=== PATIENT | female | born 1995 | race Hispanic/Latino ===

== ENCOUNTER → 2020-01-30 11:05 | Outpatient (ROUT) | payer OTHER, SELFPAY | PROVIDERS: Visit Provider Nurse Practitioner Obstetrics & Gynecology | DX: Z34.90 Encounter for supervision of normal pregnancy, unspecified, unspecified trimester (principal) | CPT/HCPCS: 86900; 86901 ==

== ENCOUNTER → 2020-03-02 15:42 | Outpatient (CLI) | payer OTHER, SELFPAY ==
--- NOTE | 2020-03-02 | DI.US.S_ITS ---
PROCEDURE: US OB >= 14 WEEKS FETUS INDICATIONS: ANATOMY OUTSIDE/PRIOR DATING DATA: Last menstrual period (LMP): October 07, 2019. LMP-based estimated date of delivery (ALEJANDRA): July 13, 2020 . First dating scan (date and location): March 02, 2020 . Estimated date of delivery (ALEJANDRA) from first dating scan: July 06, 2020 . TECHNIQUE: Real-time scanning was performed of the fetus, with image documentation and biometric measurements. Endovaginal scanning: Not performed COMPARISON: None. FINDINGS: General: A single living intrauterine gestation is present. Presentation: Vertex. Placenta: Placental position is posterior , without previa. Amniotic fluid index: 12.6 cm, normal range is 5-24 cm. heart rate: 152 beats per minute. Maternal cervical canal: 4.1 cm long. Normal lower limit is 2.5 cm. biometrics: Biparietal diameter: 5.2 cm, correlating with 21 weeks and 5 days Head circumference: 19.6 cm, correlating with 21 weeks and 6 days Abdominal circumference: 16.5 cm, correlating with 21 weeks and 4 days Femur length: 4.0 cm, correlating with 23 weeks and 0 days Estimated gestational age from initial scan: not applicable. Composite gestational age from present scan: 22 weeks and 0 days Estimated weight and percentile: 478 g which correlates with the 94th percentile based off gestational age. Measurement variability for biometric dating: +/- 7 days from 14 weeks to 15 weeks 6 days gestation, +/- 10 days from 16 weeks to 21 weeks 6 days gestation, +/- 2 weeks from 22 weeks to 27 weeks 6 days gestation, +/- 3 weeks for 28 weeks gestation or later. weight reference: 4500 g or EFW >90/95% is considered macrosomia or large for gestational age. EFW <10% is small for gestational age. EFW 5% or less is considered intra-uterine growth restriction. Anatomic survey: Neuro: Ventricles are non-dilated at less than 10 mm. Cisterna magna is normal at 3-11 mm. Cerebellum is normal in size and morphology. Nuchal skin fold: Normal at less than 6 mm between 14-21 weeks gestational age. Face: Nose and lips, facial profile are normal. Spine: No evidence for spina bifida. Heart: 4-chambered heart is present, with normal ventricular outflow tracts. Diaphragm: Diaphragm is intact. Stomach: Left-sided stomach is present. Kidneys: No hydronephrosis. Normal is less than 5 mm in 2nd trimester, less than 7 mm in 3rd trimester. Cord: 3-vessel cord has orthotopic insertion. Bladder: Normal in size. Extremities: All 4 extremities identified. IMPRESSION: Single living intrauterine gestation with an estimated sonographic gestational age of approximately 22 weeks and 0 days. Estimated weight of approximately 478 g which correlates with the 94th percentile. Normal routine second-trimester anatomic screening survey. Dictated by: Lon Barrera M.D. on 03/03/2020 at 8:32 Approved by: Lon Barrera M.D. on 03/03/2020 at 8:52
== END ==
PROVIDERS: Referring Provider Nurse Practitioner Obstetrics & Gynecology; Visit Provider Nurse Practitioner Obstetrics & Gynecology
DX: Z36.89 Encounter for other specified antenatal screening (principal); Z3A.22 22 weeks gestation of pregnancy
CPT/HCPCS: 76811

== ENCOUNTER → 2020-04-08 09:02 | Outpatient (CLI) | payer OTHER, SELFPAY ==
[2020-04-08 09:48] LABS: Hematocrit 37.6 % (36-46); Mean Corpuscular HGB Conc 34.5 % (30-36); Mean Corpuscular Volume 92.5 fL (80-100); Platelet Count 158 X10^3/uL (150-400); Red Blood Cell Count 4.07 X10^6/uL (4.0-5.2); Red Cell Distribution Width 12.7 % (11.6-14.8); White Blood Cell Count 8.3 X10^3/uL (4.5-11.0)
[2020-04-08 10:21] LABS: Glucose Fasting 80 mg/dL (70-100)
[2020-04-08 11:26] LABS: Glucose Tol Interpretation INTERPRETATION
[2020-04-08 11:31] LABS: Glucose 1 Hour 139 mg/dL (70-170)
[2020-04-08 12:20] LABS: Glucose 2 Hour 97 mg/dL (70-140)
== END ==
PROVIDERS: Referring Provider Nurse Practitioner Obstetrics & Gynecology; Visit Provider Nurse Practitioner Obstetrics & Gynecology
DX: Z34.90 Encounter for supervision of normal pregnancy, unspecified, unspecified trimester (principal); Z13.1 Encounter for screening for diabetes mellitus; Z3A.26 26 weeks gestation of pregnancy
CPT/HCPCS: 36415; 82951; 82952; 85027

== ENCOUNTER → 2020-06-18 12:56 | Outpatient (ROUT) | payer OTHER, SELFPAY | PROVIDERS: Visit Provider Nurse Practitioner Obstetrics & Gynecology | DX: Z34.90 Encounter for supervision of normal pregnancy, unspecified, unspecified trimester (principal); Z36.85 Encounter for antenatal screening for Streptococcus B; Z3A.36 36 weeks gestation of pregnancy | CPT/HCPCS: 87081 ==

== ENCOUNTER 2020-07-08 07:31 | Inpatient (IN) | payer OTHER, SELFPAY ==
--- NOTE | 2020-07-08 08:27 | P.HPOB_ITS ---
OB HPI Date/Time Date of admission: 07/08/20 Date Patient Seen: 07/08/20 Time Patient Seen: 07:45 History of Present Condition Chief complaint: OBS : 1 Para: 0 Estimated Date of Delivery: 07/13/20 Estimated Gestational Age (weeks): 39.2 Narrative: Missy Conroy is a 24 year old female @ 39wks 2 days by LMP and early US who presents for evaluation of labor. Lots of FM and irregular, but painful contractions. Has had some bloody mucus discharge, but no active bleeding or leaking fluid. No fever, cough or associated COVID sx. Uncomplicated PN care w/ CNM. Was SARS-CoV-2 positive 03/28/2020 with rapid resolution of mild symptoms and has not been re-tested since. Requesting epidural. FOB is present and supportive. History of Present care: good care, initiated at week # (8), number of visits (9) and pounds weight gain (39) Dating criteria: LMP confirmed by 1st trimester US Medical complications: none Preadmission Labs Blood type: O (+) positive -: Antibody screen: negative, GBS status: negative, HBsAG: negative and HIV: negative -: Chlamydia screen: not detected and Gonorrhea screen: not detected -: Rubella: immune HCT: 37.6 HCAB: negative Cell-free DNA: Negative/ female Narrative: 2 hr gtt: 80/139/97 Evaluation Evaluation Baseline heart rate: 165 Variability: Moderate (11-25) monitor accelerations: Present monitor decelerations: Absent Contraction Frequency (minutes): 5 Uterine Contraction Intensity: Strong/Firm Status: Category ll Cervical dilation (cm): 4 Cervical effacement (%): 80 station: -2 [facility] Social History (Updated 07/08/20 @ 10:54 by Zara Wang CNM) marital status: unmarried,living together household members: significant other lives independently: Yes caregiver/support person: No education level: college Smoking Status: Former smoker substance use type: does not use well-balanced diet: daily or most days Meds Home Medications and Allergies Allergies Allergy/AdvReac Type Severity Reaction Status Date / Time amoxicillin Allergy Mild Rash Verified 07/08/20 10:54 Review of Systems Review of Systems ROS: Yes All systems reviewed with the patient and are negative except as otherwise documented Exam Vital Signs (past 8 hours): BP 120/66, HR 90bpm, RR-18/min, T 36.0C Temporal Resp Effort & Inspection: normal respiratory effort Auscultation: clear to auscultation bilaterally Cardio Rate: regular rate Rhythm: regular rhythm Heart Sounds: S1 normal and S2 normal Presentation: vertex Objective Labs Result Diagrams: 07/08/20 09:20 Labs: SARS-CoV-2: POSITIVE upon admission Assessment and Plan Assessment and Plan Assessment and Plan narrative: A: Term nullipara Approaching active labor No indication for GBS prophylaxis SARS-CoV-2 precautions indicated tachycardia, otherwise reassuring FHR tracing P: Admit, routine orders w/ COVID precautions. Epidural TONI. Will consult OB if FHR tachycardia not resolved after epidural IVFB. Consulted Hospitalist and OB on-call who agree w/ plan of care for this patient. Reassess in 4 hours or sooner, PRN.
[2020-07-08] MEDS: LACTATED RINGERS 1,000 ML 100 ML IV ×2 (09:00→12:23)
[2020-07-08 09:07] LABS: COVID19 -Nasal RAPID POSITIVE (Negative)
[2020-07-08 09:28] LABS: Add Manual Diff / Slide Review NO; Basophils Absolute Auto 0 /uL (0-100); Basophils Percent Auto 0.4 % (0-2); Eosinophils Absolute Auto 0 /uL (0-450); Eosinophils Percent Auto 0.3 % (2-4); Hematocrit 39.8 % (36-46); Hemoglobin 13.4 g/dL (12.0-16.0); Lymphocytes Absolute Auto 1300 /uL (1100-4500); Lymphocytes Percent Auto 9.8 % (25-40); Mean Corpuscular HGB Conc 33.7 % (30-36); Mean Corpuscular Volume 91.8 fL (80-100); Monocytes Absolute Auto 700 /uL (0-900); Monocytes Percent Auto 5.3 % (3-14); Neutrophils Absolute Auto 11200 /uL (1500-7000); Neutrophils Percent Auto 84.2 % (50-75); Platelet Count 178 X10^3/uL (150-400); Red Blood Cell Count 4.33 X10^6/uL (4.0-5.2); Red Cell Distribution Width 13.5 % (11.6-14.8); White Blood Cell Count 13.3 X10^3/uL (4.5-11.0)
[2020-07-08] MEDS: OXYTOCIN PREMIX 30 UNIT/500 ML PLAST..BAG IV (11:40)
--- NOTE | 2020-07-08 11:46 | PM.OBPNLAB ---
Date/Time Date Patient Seen: 07/08/20 Time Patient Seen: 11:35 Pain Control Pain control: tolerating well and epidural Comments: Patient resting comfortably, planning to sleep since she couldn't last night. Pelvic Exam Dilation (cm): 4 Effacement (%): 90 station: -2 Amniotic membrane status: Intact Contractions Contractions on admission: irregular Monitor mode: External Pitocin rate (mU/min): 2 Contraction frequency (min): 5 Contraction duration (min): 2 Contraction pattern: Regular Contraction intensity: Strong/Firm Status status: Category l Heart Rate Baseline: 135 Monitor Accelerations: Present Monitor Decelerations: Absent Monitor Variability: Moderate Comments: tachycardia resolved at 0900 Assessment and Plan Assessment: active labor Plan: begin patient augmentation Comments: P: Counseled on recommendation for pitocin augmentation, given spaced contractions. Pt consented and pitocin was started. Counseled on COVID recommendations including isolating in same room as after the . Reassess in 4 hours.
--- NOTE | 2020-07-08 15:41 | PM.OBPNLAB ---
Date/Time Date Patient Seen: 07/08/20 Time Patient Seen: 15:30 Pain Control Pain control: tolerating well and epidural Comments: VS remain stable and she remains asymptomatic for viral illness Pelvic Exam Dilation (cm): 6 Effacement (%): 100 station: -1 Amniotic membrane status: Intact Contractions Contractions on admission: irregular Monitor mode: External Pitocin rate (mU/min): 4 Contraction frequency (min): 5 Contraction duration (min): 2 Contraction pattern: Regular Contraction intensity: Strong/Firm Status status: Category ll Heart Rate Baseline: 145 Monitor Accelerations: Present Monitor Decelerations: Variable Monitor Variability: Moderate Comments: Overall reassuring, rare small variables only Assessment and Plan Assessment: active labor Plan: continuous present management Comments: Continue pitocin titration to adequate contraction pattern. Encouraged frequet position changes. Reassess in 4 hours or sooner, PRN.
[2020-07-08 16:29] VITALS: BP 119/80
[2020-07-08] MEDS: ACETAMINOPHEN 325 MG TABLET 650 MG PO (16:34)
[2020-07-08] MEDS: FENT 2MCG/ML BUPIV 0.125% EPI 200 MCG/100 ML PLAST..BAG 12 MCG EPIDURAL (19:27)
--- NOTE | 2020-07-08 19:47 | PM.OBPNLAB ---
Date/Time Date Patient Seen: 07/08/20 Time Patient Seen: 18:50 Pain Control Pain control: tolerating well and epidural Comments: feeling rectal pressure Pelvic Exam Dilation (cm): 9 Effacement (%): 100 station: 0 Amniotic membrane status: Leaking Comments: SROM @ 1635 Contractions Contractions on admission: irregular Monitor mode: External Pitocin rate (mU/min): 4 Contraction frequency (min): 2 Contraction duration (min): 1 Contraction pattern: Regular Contraction intensity: Strong/Firm Status status: Category ll Heart Rate Baseline: 150 Monitor Accelerations: Present Monitor Decelerations: Variable Monitor Variability: Moderate Assessment and Plan Assessment: active labor Plan: continuous present management Comments: Anticipate NSVB.
--- NOTE | 2020-07-08 23:24 | PM.OBPRVD ---
Labor & Delivery Delivery date: 07/08/20 Intrapartal Events: None Cervical ripening method: none Induction method: none Delivery augmentation: pitocin Delivery monitor: external FHT and external uterine Route of delivery: L&D Laceration Description: None Estimated blood loss (mL): 150 Anesthesia Type: Epidural Narrative: was placed on maternal abdomen for drying and stimulation. Coaching and encouragement of maternal efforts led to slow but steady descent of vertex. NSVB of a viable baby girl in ALLISON position w/ no nuchal cord and easy delivery of the shoulders over an intact vagina and perineum. Remaining 30 units of pitocin in 500mL LR was increased to 250mL/hr for AMTSL. After cessation of pulsation, the cord was double clamped by CNM and cut by FOB. Gentle cord traction and single maternal push led to spontaneous, Schultze delivery of an apparently intact placenta, membranes and 3VC. Fundus massaged firm and initially brisk bleeding decreased to scant. QBL 150mL. Both mother and baby stable and skin to skin as I left the room. [place] Baby 1: gender: Female Presentation: vertex Position: Right Occiput Anterior Placenta delivery description: Spontaneous Cord Vessel Description: 3 Vessels score (1 min): 9 score (5 min): 9 weight: 3.7 kg Plan for aftercare: Routine care
[2020-07-09] MEDS: DERMOPLAST SPRAY 20% 60 ML 1 SPRAY TOP (00:20)
[2020-07-09] MEDS: LANOLIN OINT 7 GM 1 APPLIC TOP (00:20)
[2020-07-09] MEDS: KETOROLAC 30 MG/ML VIAL IV (00:21)
[2020-07-09] MEDS: IBUPROFEN 600 MG TABLET PO (06:30)
--- NOTE | 2020-07-09 11:44 | P.DS_ITS ---
Discharge Providers Provider Date of admission: 07/08/20 07:31 Discharge Date: 07/09/20 Consults: 07/09/20 23:21 Consult to Inventory Control Assistant Routine Comment: Discharge provider: Zara Wang CNM Summary Discharge Diagnosis (1) SARS-CoV-2 positive: Status: Acute Problem Details: Asymptomatic, positive on routine admission screening (2) Encounter for full-term uncomplicated delivery: Status: Acute Problem Details: Sitting up in a chair, nursing her daughter. Has been following in room nursing isolation procedures (mask, washing her breasts prior to nursing, etc.). Voiding, ambulating and independently. Pain is well controlled w/ PO medication. Lochia is moderate, no clots. Tolerating general diet. Eager for discharge to home this evening. Time Spent with Patient Time attestation: Total time spent providing and/or coordinating discharge services: Objective Labs Result Diagrams: 07/08/20 09:20 Exam Vital Signs (past 8 hours): BP 117/71, HR 74bpm, RR 18/min, T 98.0 F Temporal Other: Fundus firm @ u-1, lochia light, perineum intact, mild edema Discharge Plan Discharge Plan Patient Disposition: Home Discharge orders & Medications Prescriptions: New docusate sodium [DOK] 100 mg Capsule 100 mg PO DAILY 7 Days Qty: 10 RF: 0 acetaminophen 325 mg Tablet 650 mg PO Q6HR PRN (Reason: Pain, Mild (1-3)) 14 Days Qty: 60 RF: 0 ibuprofen 600 mg Tablet 600 mg PO Q6HR PRN (Reason: Pain, Mild (1-3)) 14 Days Qty: 60 RF: 0 No Action No Known Home Medications RF: 0 Follow up/Referrals: Zara Wang CNM [[employer]] - (Follow-up in 2 weeks by Telehealth 07/22/2020 @ 1215 Follow-up in 6 weeks in office 08/19/2020 @ 1045) Diet/Activity/Treatments Diet: Regular Activity: Pelvic rest x 6 weeks Skin/Wound/Dressing Care Report to your healthcare provider any signs of infection, such as:: chills, fe wicho, increased pain, unusual drainage and unusual redness Visit Report/Discharge Packet Instructions: DI for Depression
[2020-07-09 18:38] VITALS: BP 119/80; PULSE 78; RESP 16; TEMP 36.7
== END 2020-07-09 19:45 | disposition home or self-care (01) | DRG 805 ==
PROVIDERS: Admitting Provider Nurse Practitioner Obstetrics & Gynecology; Referring Provider Nurse Practitioner Obstetrics & Gynecology; Visit Provider Nurse Practitioner Obstetrics & Gynecology
DX: O98.52 Other viral diseases complicating childbirth (principal); U07.1 COVID-19; Z37.0 Single live birth; Z3A.39 39 weeks gestation of pregnancy
CPT/HCPCS: 01967; 36415; 59050; 85025; 86850; 86900; 86901; 87635; C9803; G0379; J1885; J2590

== ENCOUNTER → 2021-10-23 10:35 | Outpatient (CLI) | payer OTHER, MEDICAID, SELFPAY ==
--- NOTE | 2021-10-23 | DI.US.S_ITS ---
PROCEDURE: US OB >= 14 WEEKS FETUS INDICATIONS: 20 WEEK ANATOMY OUTSIDE/PRIOR DATING DATA: Last menstrual period (LMP): May 31, 2021 LMP-based estimated date of delivery (ALEJANDRA): March 07, 2022 First dating scan (date and location): October 23, 2021 Estimated date of delivery (ALEJANDRA) from first dating scan: March 04, 2022 TECHNIQUE: Real-time scanning was performed of the fetus, with image documentation and biometric measurements. Endovaginal scanning: Not performed COMPARISON: [facility], OB >= 14 WEEKS FETUS, 03/02/2020, 15:54. FINDINGS: General: A single living intrauterine gestation is present. Presentation: Transverse, head to maternal right Placenta: Placental position is posterior , without previa. Amniotic fluid index: 14.1 cm, normal range is 5-24 cm. Single deepest vertical pocket is 4.1 cm. heart rate: 157 beats per minute. Maternal cervical canal: 4.6 cm long. Normal lower limit is 2.5 cm. biometrics: Biparietal diameter: 4.9 cm, 20 weeks and 5 days Head circumference: 18.6 cm, 21 weeks and 0 days Abdominal circumference: 16.1 cm, 21 weeks and 2 days Femur length: 3.6 cm, 21 weeks and 3 days Clinically estimated gestational age: Not calculated Composite gestational age from present scan: 21 weeks and 1 day Estimated weight and percentile: 410 g which correlates with the 74th percentile based off gestational age Anatomic survey: Neuro: Ventricles are non-dilated at less than 10 mm. Cisterna magna is normal at 3-11 mm. Cerebellum is normal in size and morphology. Nuchal skin fold: Normal at less than 6 mm between 14-21 weeks gestational age. Face: Nose and lips, facial profile are normal. Spine: No evidence for spina bifida. Heart: 4-chambered heart is present, with normal ventricular outflow tracts. Diaphragm: Diaphragm is intact. Stomach: Left-sided stomach is present. Kidneys: No hydronephrosis. Normal is less than 5 mm in 2nd trimester, less than 7 mm in 3rd trimester. Cord: 3-vessel cord has orthotopic insertion. Bladder: Normal in size. Extremities: All 4 extremities identified. IMPRESSION: 1. Single living intrauterine gestation with estimated sonographic gestational age of approximately 21 weeks and 1 day. Estimated dated delivery is approximately March 04, 2022. 2. Estimated weight of approximately 410 g which correlates with the 74th percentile based off gestational age. 3. Normal routine anatomic screening survey. We strive to produce accurate, complete, and clear reports of imaging services. To assist us in improving patient care, this report was composed using standard report templates and voice recognition software. Therefore, it may contain abnormal punctuation, insertions and/or omissions. Occasional wrong-word or sound-alike substitutions may occur. Though we review the report and make efforts to correct it, we do recommend that the report be read carefully in proper context to recognize any text inaccuracies. Dictated by: Lon Barrera M.D. on 10/23/2021 at 13:20 Approved by: Lon Barrera M.D. on 10/23/2021 at 13:38
== END ==
PROVIDERS: Referring Provider Nurse Practitioner Obstetrics & Gynecology; Visit Provider Nurse Practitioner Obstetrics & Gynecology
DX: Z3A.21 21 weeks gestation of pregnancy (principal); Z34.92 Encounter for supervision of normal pregnancy, unspecified, second trimester
CPT/HCPCS: 76811

== ENCOUNTER → 2021-12-04 07:50 | Outpatient (CLI) | payer OTHER, MEDICAID, SELFPAY ==
[2021-12-04 08:46] LABS: Hematocrit 37.9 % (36-46); Hemoglobin 13.1 g/dL (12.0-16.0); Mean Corpuscular HGB Conc 34.6 % (30-36); Mean Corpuscular Hemoglobin 31.6 PG (26-34); Mean Corpuscular Volume 91.3 fL (80-100); Platelet Count 176 X10^3/uL (150-400); Red Blood Cell Count 4.15 X10^6/uL (4.0-5.2); Red Cell Distribution Width 13.4 % (11.6-14.8); White Blood Cell Count 10.5 X10^3/uL (4.5-11.0)
[2021-12-04 10:26] LABS: Glucose Tol Interpretation INTERPRETATION
[2021-12-04 11:02] LABS: Glucose 1 Hour 135 mg/dL (70-170)
[2021-12-04 13:29] LABS: Glucose 2 Hour 82 mg/dL (70-140)
[2021-12-05 10:14] LABS: Glucose Fasting 75 mg/dL (70-100)
== END ==
PROVIDERS: Referring Provider Nurse Practitioner Obstetrics & Gynecology; Visit Provider Nurse Practitioner Obstetrics & Gynecology
DX: Z34.90 Encounter for supervision of normal pregnancy, unspecified, unspecified trimester (principal); Z13.1 Encounter for screening for diabetes mellitus; Z3A.26 26 weeks gestation of pregnancy
CPT/HCPCS: 36415; 82951; 82952; 85027

== ENCOUNTER 2022-03-04 23:30 | Inpatient (IN) | payer OTHER, MEDICAID, SELFPAY ==
[2022-03-05 00:13] VITALS: BP 133/75
[2022-03-05 00:22] LABS: COVID19 -Nasal RAPID Negative (Negative)
--- NOTE | 2022-03-05 01:22 | PM.OBHP.1 ---
OB HPI Date/Time Date of admission: 03/05/22 Date Patient Seen: 03/05/22 Time Patient Seen: 01:22 History of Present Condition Chief complaint: Labor : 2 Para: 1 Estimated Date of Delivery: 03/07/22 Estimated Gestational Age (weeks): 39.5 Narrative: Missy Conroy is a 26 year [id number] who [facility] for evaluation of labor. Has been feeling mild, irregular contractions x 2 days and lost mucu plug yesterday. Awoke at 10pm with strong contractions that have persisted. Uncomplicated PN care w/ CNM. +FM. No VB or LOF. Desires epidural for labor analgesia. Partner, Edmond is present and supportive. History of Present care: good care, initiated at week # (11), number of visits (9) and pounds weight gain (31) Dating criteria: based on 1st trimester US only Ultrasounds: normal mid trimester US Obstetrical complications: none Medical complications: none Preadmission Labs Blood type: O (+) positive -: Antibody screen: negative, GBS status: negative, HBsAG: negative, HIV: negative and RPR/VDLR: negative -: Chlamydia screen: not detected and Gonorrhea screen: not detected -: Rubella: immune and Varicella: immune HCT: 37.9 HCAB: negative PAP: Normal Cell-free DNA: Negative, Male Narrative: 2hr gtt: 75/135/82 Prior (ies) History: 07/08/2020: NSVB@ [id number], girl Sintia, [id number], epidural, intact Evaluation Evaluation Baseline heart rate: 140 Variability: Moderate (11-25) monitor accelerations: Present Monitor Decelerations: Early (single) and Late (single) Contraction Frequency (minutes): 6 Uterine Contraction Intensity: Moderate Category of Tracing: Reactive Status: Category ll Dilation (cm): 4 Effacement (%): 50 Dilation: 3-4 cm Effacement: 40-50% station: -2 Position of cervix: posterior Consistency: soft Clark score: 6 [facility] Medical History (Updated 03/05/22 @ 01:33 by Zara May CNM) Anxiety Social History marital status: unmarried,living together household members: significant other lives independently: Yes caregiver/support person: No education level: college Smoking Status: Former smoker substance use type: does not use well-balanced diet: daily or most days Meds Home Medications and Allergies Allergies Allergy/AdvReac Type Severity Reaction Status Date / Time amoxicillin Allergy Mild Rash Verified 07/08/20 23:29 Review of Systems Review of Systems ROS: Yes All systems reviewed with the patient and are negative except as otherwise documented OB Exam Narrative Exam Narrative: VS:BP 133/75, HR 78bpm, T 36.6C Temporal Resp Effort & Inspection: normal respiratory effort Auscultation: clear to auscultation bilaterally Cardio Rate: regular rate Rhythm: regular rhythm Heart Sounds: S1 normal and S2 normal Presentation: vertex Objective Labs Labs: Laboratory Results - last 24 hr 03/04/22 23:59 SARS-CoV-2 (PCR) Negative Assessment and Plan Assessment and Plan Assessment and Plan narrative: A: Term primipara Approaching active labor No indication for GBS prophylxis Cat II FHR, overall reassuring P: Admit, routine orders. Epidural when requested. Labor support PRN. Reassess in 4 hours or sooner, PRN.
[2022-03-05] MEDS: LACTATED RINGERS 1,000 ML 100 ML IV ×2 (01:53→03:00)
[2022-03-05 02:13] LABS: Add Manual Diff / Slide Review NO; Basophils Absolute Auto 0 /uL (0-100); Basophils Percent Auto 0.3 % (0-2); Eosinophils Absolute Auto 100 /uL (0-450); Eosinophils Percent Auto 0.9 % (2-4); Hematocrit 41.7 % (36-46); Hemoglobin 14.1 g/dL (12.0-16.0); Lymphocytes Absolute Auto 1500 /uL (1100-4500); Lymphocytes Percent Auto 12.7 % (25-40); Mean Corpuscular HGB Conc 33.8 % (30-36); Mean Corpuscular Hemoglobin 30.7 PG (26-34); Mean Corpuscular Volume 90.7 fL (80-100); Monocytes Absolute Auto 700 /uL (0-900); Monocytes Percent Auto 6.4 % (3-14); Neutrophils Absolute Auto 9100 /uL (1500-7000); Neutrophils Percent Auto 79.7 % (50-75); Platelet Count 177 X10^3/uL (150-400); White Blood Cell Count 11.5 X10^3/uL (4.5-11.0)
[2022-03-05] MEDS: FENT 2MCG/ML BUPIV 0.125% EPI 200 MCG/100 ML PLAST..BAG 6 MCG EPIDURAL (03:46)
--- NOTE | 2022-03-05 05:35 | PM.OBPNLAB ---
Date/Time Date Patient Seen: 03/05/22 Time Patient Seen: 05:35 Pain Control Pain control: epidural Comments: Has been able to sleep after epidural was placed. VS: BP 97/55, HR 76bpm, T 36.3C Temporal Pelvic Exam Dilation (cm): 5 Effacement (%): 75 station: -2 Amniotic membrane status: Intact Contractions Monitor mode: External Pitocin rate (mU/min): 0 Contraction frequency (min): 6 Contraction duration (min): 1 Contraction intensity: Moderate Status status: Category l Heart Rate Baseline: 145 Monitor Accelerations: Present Monitor Decelerations: Absent Monitor Variability: Moderate Assessment and Plan Assessment: active labor Plan: continuous present management Comments: Continue frequent position changes. Reassess in 4 hours or sooner, PRN. Will consider AROM or pitocin if minimal change at next exam.
[2022-03-05] MEDS: OXYTOCIN PREMIX 30 UNIT/500 ML PLAST..BAG IV (09:59)
--- NOTE | 2022-03-05 16:25 | PM.OBPNLAB ---
Date/Time Date Patient Seen: 03/05/22 Time Patient Seen: 12:14 Pain Control Pain control: epidural Comments: Comfortable and resting well but eager to help things along and happy with pitocin augmentation that was started at 10am. Frequently changing positions, now with peanut ball in place, good leg control. VS: BP 101/54mmHg, HR 80bpm, T 36.4C Temporal. Pelvic Exam Dilation (cm): 6 Effacement (%): 75 station: -2 Amniotic membrane status: Intact Contractions Monitor mode: External Pitocin rate (mU/min): 4 Contraction frequency (min): 6 Contraction duration (min): 2 Contraction intensity: Moderate Status status: Category l Heart Rate Baseline: 145 Monitor Accelerations: Present Monitor Decelerations: Absent Monitor Variability: Moderate Assessment and Plan Assessment: active labor Plan: continuous present management Comments: Reassess in 4 hours or sooner, PRN.
--- NOTE | 2022-03-05 16:34 | PM.OBPNLAB ---
Date/Time Date Patient Seen: 03/05/22 Time Patient Seen: 16:35 Pain Control Pain control: epidural Comments: SROM, clear fluid at 1600 with report of feling rectal pressure. VS: BP 116/72mmHg, HR 75bpm, T 36.4C Temporal Pelvic Exam Dilation (cm): 9 Effacement (%): 100 station: 0 Amniotic membrane status: Intact Comments: Minimal descent with practice push during exam. Contractions Contractions on admission: regular Monitor mode: External Pitocin rate (mU/min): 6 Contraction frequency (min): 2 Contraction duration (min): 1 Contraction intensity: Moderate Status status: Category l Heart Rate Baseline: 145 Monitor Accelerations: Present Monitor Decelerations: Absent Monitor Variability: Moderate Assessment and Plan Assessment: active labor Plan: continuous present management Comments: Recommend laboring down for 30 minutes and then beginning second stage.
--- NOTE | 2022-03-05 17:32 | PM.OBPRVD ---
Labor & Delivery Delivery date: 03/05/22 Intrapartal Events: None Cervical ripening method: none Induction method: none Delivery augmentation: pitocin Delivery monitor: external FHT and external uterine Route of delivery: Episiotomy description: None L&D Laceration Description: None Quantitative Blood Loss: 230 Anesthesia Type: Epidural Complications: Coached pushing and strong maternal efforts led to NSVB of a vigorous baby boy in THIERNO position, over an intact perineum. Max dose of pitocin augmentation was 6mu/min. Epidural anesthesia was adequate throughout labor and second stage. was placed on maternal abdomen for drying and skin to skin. Remaining 30 units of pitocin in 500mL LR was increased to 250mL/hr for AMTSL. After cessation of pulsation the cord was double clamped by CNM and cut by FOB. Cord blood sample was collected. Gentle cord traction and single maternal push led to spontaneous, Schultze delivery of an apparently intact placenta, membranes and 3VC. Fundus immediately firm and bleeding minimal. QBL 230mL. Both mother and baby stable and skin to skin as I left the room. Baby 1: gender: Male Presentation: vertex Position: Left Occiput Anterior Placenta delivery description: Spontaneous Cord Vessel Description: 3 Vessels score (1 min): 8 score (5 min): 9 weight: 4.064 kg Plan for aftercare: Routine care
[2022-03-05] MEDS: KETOROLAC 30 MG/ML VIAL IV (20:13)
[2022-03-06] MEDS: IBUPROFEN 600 MG TABLET PO ×2 (06:07→12:18)
[2022-03-06] MEDS: ACETAMINOPHEN 325 MG TABLET 650 MG PO ×2 (06:07→12:18)
--- NOTE | 2022-03-06 08:04 | P.DS_ITS ---
Discharge Providers Provider Date of admission: 03/04/22 23:30 Discharge Date: 03/06/22 Primary care physician: Doctor Joanna MD Consults: 03/06/22 17:29 Consult to [facility]ure Packer Routine Comment: Discharge provider: Zara May CNM Summary Hospital Course Date Patient Seen: 03/06/22 Time Patient Seen: 08:04 Diagnoses: O80 Hospital Course: PPD1: Stable 15 hours s/p NSVB. Voiding, and ambulating independ ently. Tolerating a general diet with pain well controlled with PO medication (Ibuprofen & Tylenol). Lochia is light, without clots. Eager for discharge to home as soon as possible. Peripartum Data Delivery Method: Natural Vaginal Laceration Description: None Episiotomy description: None [place] 1: Gender: Male Status at Discharge Cognitive/behavioral status at discharge: oriented and calm Functional status at discharge: independent ambulation Overall status at discharge: patient is progressing back to baseline Time Spent with Patient Time attestation: Total time spent providing and/or coordinating discharge services: Specific discharge activities: discharge teaching Objective Labs Result Diagrams: 03/05/22 01:51 Exam Vital Signs (past 8 hours): BP 103/62, HR 79, T 18/min, T 97.9F Axillary Other: Fundus Firm @ U, lochia scant, no clots. Perineum intact, no edema Discharge Plan Discharge Plan Patient Disposition: Home Discharge orders & Medications Prescriptions: New ibuprofen 600 mg Tablet 600 mg PO Q6HR PRN (Reason: Pain, Mild (1-3)) 14 Days Qty: 60 0RF Continued Chewable < 1 mg Combo Pack 1 pkg PO 1XD Follow up/Referrals: Doctor Marshall MD [Primary Care Provider] - Zara May CNM [[employer]] - (Follow-up phone call 03/19/22 @ 10am Follow-up in office 04/16/22 @ 11:15am) Diet/Activity/Treatments Diet: Diet as Tolerated and Regular Activity: pelvic rest x 6 weeks Skin/Wound/Dressing Care Report to your healthcare provider any signs of infection, such as:: chills, fever, increased pain, unusual drainage and unusual redness Visit Report/Discharge Packet Instructions: DI for Depression Discharge Data Primary Care Provider: Doctor Joanna
[2022-03-06] MEDS: DOCUSATE 100 MG CAPSULE PO (10:34)
== END 2022-03-06 13:20 | disposition home or self-care (01) | DRG 807 ==
PROVIDERS: Admitting Provider Nurse Practitioner Obstetrics & Gynecology; Visit Provider Nurse Practitioner Obstetrics & Gynecology
DX: O76 Abnormality in fetal heart rate and rhythm complicating labor and delivery (principal); Z37.0 Single live birth; Z3A.39 39 weeks gestation of pregnancy; Z20.822 Contact with and (suspected) exposure to COVID-19
CPT/HCPCS: 59025; 59050; 85025; 86850; 86900; 86901; 87635; C9803; G0379; J1885; J2590